=== PATIENT | male | born 1980 | race Two or more races ===

== ENCOUNTER 2016-11-04 18:14 | Emergency (ER) | payer MEDICAID ==
[~2016-11-04] VITALS: Ht 177.8 cm; Wt 103.0 kg
[~2016-11-04 18:14] MED LIST: BEN25 PO; CETI10CA PO; DIAZ-90 PO; ELIM TOP; HC30CR25 TOP; IBUP-1542 PO; PROM6.25 PO; SODI75SP NASAL
[2016-11-04 18:17] VITALS: Ht 177.8 cm; Wt 103.0 kg
[2016-11-04] MEDS ORDERED: IBUP-1542 PO (19:05)
[2016-11-04 19:20] VITALS: BP 131/79; PULSE 71; RESP 18; TEMP 98
--- NOTE | 2016-11-04 20:27 | ERA ---
ER Documentation Chief Complaint Date/Time DATE: 11/04/16 TIME: 20:21 Chief Complaint Complains of chest pain x 1 week HPI Patient is a 36-year-old male who presents with one-week left-sided chest pain radiating. Patient has not done anything at this time to relieve the pain. Patient is worried that it might be cardiac. Patient was at rest when it started. Patient denies fever, nausea, vomiting, diarrhea, diaphoresis, pain with exertion or radiation. Nothing improves the pain. Palpation makes the pain worse. ROS All systems reviewed and are negative except as per history of present illness. Medications Home Meds Active Scripts Ibuprofen* (Motrin*) 600 Mg Tab, 600 MG PO Q6H Y for PAIN AND OR ELEVATED TEMP, #30 TAB Prov:AISSATOU LOUIE PA-C 11/04/16 Diphenhydramine Hcl* (Benadryl*) 25 Mg Cap, 25 MG PO Q6, #15 CAP Prov:THIERRY SOLO MD 08/10/16 Hydrocortisone* Topical (Hydrocortisone* Topical) 2.5%-28.3 Gm Cream..g., 1 APPLIC TOP BID for 7 Days, #1 TUB Prov:THIERRY SOLO MD 08/10/16 Permethrin* (Elimite*) 5% Cr, 1 APPLIC TOP ONCE for 1 Day, TUB Prov:THIERRY SOLO MD 08/10/16 Diazepam* (Valium*) 5 Mg Tablet, 5 MG PO Q8 Y for MUSCLE SPASMS, #10 TAB Prov:MECHE GATICA PA-C 04/22/16 Ibuprofen* (Motrin*) 600 Mg Tab, 600 MG PO Q6H Y for PAIN AND OR ELEVATED TEMP, #30 TAB Prov:MECHE GATICA PA-C 04/22/16 Sodium Chloride/Sod Bicarb (Nasa Mist Saline [place]) 75 Ml [place], 2 SPRAYS NASAL BID, #1 BOTTLE Prov:ROSANNA RODRIGUEZ NP 10/15/15 Promethazine w/Codeine* (Phenergan w/Codeine* Syrup) 5 Ml Syrup, 5 ML PO Q4H Y for COUGH for 10 Days, ML Prov:ROSANNA RODRIGUEZ NP 10/15/15 Cetirizine Hcl* (Zyrtec*) 10 Mg Capsule, 10 MG PO DAILY, #10 TAB.CHEW Prov:ROSANNA RODRIGUEZ NP 10/15/15 Allergies Allergies: Coded Allergies: No Known Allergy (Unverified , 08/10/16) PMhx/Soc Medical and Surgical Hx: pt denies Medical Hx, pt denies Surgical Hx History of Surgery: No Anesthesia Reaction: No Hx Neurological Disorder: No Hx Respiratory Disorders: No Hx Cardiac Disorders: No Hx Psychiatric Problems: No Hx Miscellaneous Medical Probl: No Hx Alcohol Use: Yes (SOCIAL DRINKER "BEER SOMETIMES") Hx Substance Use: No Hx Tobacco Use: No Smoking Status: Never smoker Physical Exam Vitals Vital Signs Date Time Temp Pulse Resp B/P Pulse Ox O2 Delivery O2 Flow Rate FiO2 11/04/16 19:20 98.0 71 18 131/79 99 Room Air 11/04/16 18:17 98.2 63 20 139/76 99 Physical Exam Const: Well-appearing 36-year-old male Head: Atraumatic Eyes: Normal Conjunctiva ENT: Normal External Ears, Nose and Mouth. Neck: Full range of motion..~ No meningismus. Resp: Clear to auscultation bilaterally Cardio: Regular rate and rhythm, no murmurs Abd: Soft, non tender, non distended. Normal bowel sounds Skin: No petechiae or rashes Back: No midline or flank tenderness. Ext: No cyanosis, or edema Neur: Awake and alert Psych: Normal Mood and Affect Mild tenderness to palpation along left side of the chest to mid axillary line. Pain increases with deep breaths. Procedures/MDM Patient works as a manager paid. Has had atypical chest pain for the past 1 week. Pain is worse with palpation and is not exacerbated by exertion and started when he was at rest. EKG was negative. This time I do not believe the pain in the chest to be cardiac in nature. We will go ahead and prescribe the patient ibuprofen for musculoskeletal symptoms. Diagnosis at this time is most likely a type of costochondritis. I have advised the patient to follow-up with primary care provider in the next 1-3 days. Patient should return to the emergency room immediately if symptoms worsen or persist.. Departure Diagnosis: Primary Impression: Costochondritis Additional Impression: Costochondral chest pain Condition: Stable Patient Instructions: Costochondritis, Chest Wall Pain, Costochondritis Additional Instructions: Return to emergency department if symptoms worsen or persist Follow-up with primary care provider within the next 1-3 days. AISSATOU LOUIE PA-C Nov 04, 2016 20:27
== END 2016-11-04 19:20 | disposition home or self-care (01) ==
LOC: FTE 18:14
DX: M94.0 Chondrocostal junction syndrome [Tietze] (principal); R07.1 Chest pain on breathing
CPT/HCPCS: 93005; Z7502

== ENCOUNTER 2016-12-12 17:21 | Emergency (ER) | payer MEDICAID ==
[~2016-12-12] VITALS: Ht 177.8 cm; Wt 102.0 kg
[2016-12-12 17:29] VITALS: Ht 177.8 cm; Wt 102.0 kg
[2016-12-12] MEDS ORDERED: ELIM TOP (18:26)
--- NOTE | 2016-12-12 18:26 | ERD ---
ER Documentation Chief Complaint Date/Time DATE: 12/12/16 TIME: 18:23 Chief Complaint rash HPI This 36-year-old male patient presents to the emergency department reporting rash for 10 days not responding to treatment. Patient is here with his 2 daughters and all with similar symptoms. Rash developed after a friend stay the night at their house. ROS All systems reviewed and are negative except as per history of present illness. Medications Home Meds Active Scripts Hydrocortisone* Topical (Hydrocortisone* Topical) 2.5%-28.3 Gm Cream..g., 1 APPLIC TOP BID, #1 TUB Prov:MARIA GUADALUPE,MERCEDES 12/12/16 Permethrin* (Elimite*) 5% Cr, 1 APPLIC TOP ONCE for 1 Day, TUB 1 Refill Prov:MARIA GUADALUPE,MERCEDES 12/12/16 Ibuprofen* (Motrin*) 600 Mg Tab, 600 MG PO Q6H Y for PAIN AND OR ELEVATED TEMP, #30 TAB Prov:AISSATOU LOUIE PA-C 11/04/16 Diphenhydramine Hcl* (Benadryl*) 25 Mg Cap, 25 MG PO Q6, #15 CAP Prov:THIERRY SOLO MD 08/10/16 Hydrocortisone* Topical (Hydrocortisone* Topical) 2.5%-28.3 Gm Cream..g., 1 APPLIC TOP BID for 7 Days, #1 TUB Prov:THIERRY SOLO MD 08/10/16 Permethrin* (Elimite*) 5% Cr, 1 APPLIC TOP ONCE for 1 Day, TUB Prov:THIERRY SOLO MD 08/10/16 Diazepam* (Valium*) 5 Mg Tablet, 5 MG PO Q8 Y for MUSCLE SPASMS, #10 TAB Prov:MECHE GATICA PA-C 04/22/16 Ibuprofen* (Motrin*) 600 Mg Tab, 600 MG PO Q6H Y for PAIN AND OR ELEVATED TEMP, #30 TAB Prov:MECHE GATICA PA-C 04/22/16 Sodium Chloride/Sod Bicarb (Nasa Mist Saline [place]) 75 Ml [place], 2 SPRAYS NASAL BID, #1 BOTTLE Prov:ROSANNA RODRIGUEZ NP 10/15/15 Promethazine w/Codeine* (Phenergan w/Codeine* Syrup) 5 Ml Syrup, 5 ML PO Q4H Y for COUGH for 10 Days, ML Prov:RODRIGUEZROSANNA I. HAND [employer] CUTTER 10/15/15 Cetirizine Hcl* (Zyrtec*) 10 Mg Capsule, 10 MG PO DAILY, #10 TAB.CHEW Prov:ROSANNA RODRIGUEZ I. HAND [employer] CUTTER 10/15/15 Allergies Allergies: Coded Allergies: No Known Allergy (Unverified , 08/10/16) PMhx/Soc History of Surgery: No Anesthesia Reaction: No Hx Neurological Disorder: No Hx Respiratory Disorders: No Hx Cardiac Disorders: No Hx Psychiatric Problems: No Hx Miscellaneous Medical Probl: No Hx Alcohol Use: Yes (SOCIAL DRINKER "BEER SOMETIMES") Hx Substance Use: No Hx Tobacco Use: No Physical Exam Vitals Vitals stable, triage notes reviewed Physical Exam Const: No acute distress Head: Atraumatic Eyes: Normal Conjunctiva, PERRLA, EOMI ENT: Normal External Ears, Nose and Mouth. Neck: Full range of motion.. Resp: Chest rise and fall symmetrically, clear to auscultation bilaterally, no respiratory distress Cardio: Abd: Skin: Erythematous papules along waistband, scratch garcia noted. Back: Ext: No cyanosis, or edema Neur: Awake and alert Psych: Normal Mood and Affect Procedures/MDM This 36-year-old male patient presents the emergency department today with his entire family complaint of a pruritic rash that started after a friend stayed the night at the house. Atopic dermatitis, fungal infection not suspected, likely infestation, physical exam findings consistent with scabies, patient will be treated with Elimite apply from neck down to the toes let stand for 10 hours prior to rinsing, patient given Benadryl and hydrocortisone cream for itching. One refill of the Elimite to be used if symptoms present after 7 days. I feel the patient is stable for discharge and outpatient management by primary care physician I have discussed results, examination findings, the treatment plan with the patient and family present prior to discharge. Indications for emergent reevaluation, side effects of medication were also discussed. All questions were answered. Patient verbalizes understanding and agrees with plan of care. Departure Diagnosis: Primary Impression: Rash and other nonspecific skin eruption Additional Impression: Scabies Condition: Good Patient Instructions: Scabies, Self-Care for Skin Rashes [facility] Additional Instructions: Thank you for for coming to [facility] for your care today. Please ask your nurse or provider if you have questions about your care today and do not leave until all your questions have been answered. Please use any medications given as directed and follow-up with your doctor (or the doctor you were referred to) in the next 2-3 days. If you do not have a primary care doctor you may follow up at the [facility] (listed below). You may also use motrin and tylenol as needed for fever and/or pain unless instructed otherwise by your provider or nurse. Indications for more urgent follow-up have been discussed, but you may return to the Emergency Department at ANY time for any worrisome or worsening symptoms. If you have abdominal pain, please know that no test or exam you received is perfect and you should follow up within 8 hours for continued pain. If you had any imaging studies today, such as an X-Ray or CT Scan, these studies will be reviewed later by a radiologist. You will be called if there are important findings that were not identified today, so make sure the contact information you provided at registration is correct. If you received any narcotic pain control medicine today, such as Vicodin, Morphine or Dilaudid, your coordination and judgment may be affected for a number of hours. Please do not drive or operate heavy machinery, and you may want someone to assist you at home. If you were given a prescription for narcotic medication, be aware that it is very addictive- use sparingly and only if necessary. MERCEDES LERMA December 12, 2016 18:25
[2016-12-12] MEDS ORDERED: HC30CR25 TOP (18:27)
== END 2016-12-12 18:30 | disposition home or self-care (01) ==
LOC: FTE 17:21 → E/R 18:30
DX: R21 Rash and other nonspecific skin eruption (principal); B86 Scabies
CPT/HCPCS: 99283

== ENCOUNTER 2017-03-28 16:36 | Emergency (ER) | END 2017-03-28 17:26 | disposition home or self-care (01) | DX: J02.9 Acute pharyngitis, unspecified (principal) ==

== ENCOUNTER 2017-07-14 22:13 | Emergency (ER) | payer MEDICAID ==
[~2017-07-14] VITALS: Ht 180.3 cm; Wt 105.0 kg
[~2017-07-14 22:13] MED LIST changes: +AZIT250T94 PO
[2017-07-14 22:15] VITALS: Ht 180.3 cm; Wt 105.0 kg
[2017-07-14] MEDS ORDERED: BELLADONNA/PHENOBARBITAL TAB PO STA (22:47)
[2017-07-14] MEDS ORDERED: LIDOCAINE/MYLANTA 40 ML BTL PO STA (22:47)
[2017-07-14 23:18] LABS: BASOPHIL # 0.1 10^3/ul (0.0-0.1); BASOPHILS % 0.6 % (0.0-2.0); EOSINOPHILS # 0.2 10^3/ul (0.0-0.5); EOSINOPHILS % 2.5 % (0.0-7.0); HEMATOCRIT 43.5 % (42.0-52.0); HEMOGLOBIN 15.3 g/dl (14.0-18.0); LYMPHOCYTES # 2.7 10^3/ul (0.8-2.9); LYMPHOCYTES % 31.6 % (15.0-51.0); MEAN CORPUSCULAR HEMOGLOBIN 30.2 pg (29.0-33.0); MEAN CORPUSCULAR HGB CONC 35.2 g/dl (32.0-37.0); MEAN CORPUSCULAR VOLUME 85.8 fl (82.0-101.0); MEAN PLATELET VOLUME 9.9 fl (7.4-10.4); MONOCYTE # 0.7 10^3/ul (0.3-0.9); MONOCYTES % 8.3 % (0.0-11.0); NEUTROPHIL # 4.8 10^3/ul (1.6-7.5); NEUTROPHILS % 56.8 % (39.0-77.0); PLATELET COUNT 265 10^3/UL (140-415); RED BLOOD COUNT 5.07 10^6/ul (4.70-6.10); RED CELL DISTRIBUTION WIDTH 12.9 % (11.5-14.5); WHITE BLOOD COUNT 8.4 10^3/ul (4.8-10.8)
[2017-07-14 23:20] LABS: ADD UMIC NO; UR ASCORBIC ACID 20 mg/dL (NEGATIVE); UR BILIRUBIN (Dip) NEGATIVE (NEGATIVE); UR BLOOD (Dip) NEGATIVE (NEGATIVE); UR CLARITY CLEAR (CLEAR); UR COLOR YELLOW (YELLOW); UR GLUCOSE (Dip) NEGATIVE (NEGATIVE); UR KETONES (Dip) NEGATIVE (NEGATIVE); UR LEUKOCYTE ESTERASE (Dip) NEGATIVE Leu/ul (NEGATIVE); UR NITRITE (Dip) NEGATIVE (NEGATIVE); UR SPECIFIC GRAVITY (Dip) 1.017 (1.003-1.030); UR TOTAL PROTEIN (Dip) NEGATIVE (NEGATIVE); UR UROBILINOGEN (Dip) NEGATIVE (NEGATIVE)
--- NOTE | 2017-07-14 23:31 | RADRPT ---
PROCEDURE: US abdomen right upper quadrant CLINICAL INDICATION: Abdominal pain. TECHNIQUE: Mcmahan scale and color Doppler ultrasound of the right upper quadrant of the abdomen was p erformed. COMPARISON: None available. FINDINGS: Pancreas: Not visualized due to overlying bowel gas. Liver: Mildly enlarged measuring 18.8 cm. Diffuse increased echogenicity, consistent with fatty infi ltration. No focal hepatic lesion. Hepatopedal flow in the main portal vein. Gallbladder: Contracted without stones or pericholecystic fluid. Negative sonographic Arguello's sign. Common bile duct: 4.5 mm in diameter. Right Kidney: 12.1 cm in length. No nephrolithiasis, hydronephrosis, or mass. Ascites: None. IMPRESSION: 1. Hepatic steatosis and mild hepatomegaly. 2. Otherwise, unremarkable examination. RPTAT: HLBP .Roni Diaz MD, Date Time Electronically viewed and signed by .Roni Diaz MD, MD on 07/14/2017 23:31 .P/
[2017-07-14 23:35] LABS: ALBUMIN 4.3 g/dl (3.3-4.9); ALBUMIN/GLOBULIN RATIO 1.38; BILIRUBIN,INDIRECT 0.3 mg/dl (0-1.1); BILIRUBIN,TOTAL 0.3 mg/dl (0.2-1.3); CALCIUM 9.7 mg/dl (8.4-10.2); CREATININE 1.13 mg/dl (0.61-1.24); POTASSIUM 3.5 mmol/L (3.5-5.1); TOTAL PROTEIN 7.4 g/dl (6.1-8.1)
--- NOTE | 2017-07-14 23:44 | ERD ---
ER Documentation Chief Complaint Chief Complaint c/o abd pain x 3 wks. (+) diarrhea. HPI 37-year-old male presents with epigastric pain that has been intermittent for the past 3 weeks. He denies vomiting but does have nausea. No fever. Symptoms are worse after eating. No diarrhea. No dysuria hematuria frequency. ROS All systems reviewed and are negative except as per history of present illness. Medications Home Meds Active Scripts Ibuprofen* (Motrin*) 600 Mg Tab, 600 MG PO Q6, #15 TAB Prov:THIERRY SOLO MD 03/28/17 Azithromycin* (Zithromax*) 250 Mg Tablet, 250 MG PO .ZPACK DIRECTED, #6 TAB TAKE 500 MG (2 TABS) THE FIRST DAY THEN 250 MG (1 TAB) DAYS 2-5 Prov:THIERRY SOLO MD 03/28/17 Hydrocortisone* Topical (Hydrocortisone* Topical) 2.5%-28.3 Gm Cream..g., 1 APPLIC TOP BID, #1 TUB Prov:MARIA GUADALUPE,MERCEDES 12/12/16 Permethrin* (Elimite*) 5% Cr, 1 APPLIC TOP ONCE for 1 Day, TUB 1 Refill Prov:MARIA GUADALUPE,MERCEDES 12/12/16 Ibuprofen* (Motrin*) 600 Mg Tab, 600 MG PO Q6H Y for PAIN AND OR ELEVATED TEMP, #30 TAB Prov:AISSATOU LOUIE PA-C 11/04/16 Diphenhydramine Hcl* (Benadryl*) 25 Mg Cap, 25 MG PO Q6, #15 CAP Prov:THIERRY SOLO MD 08/10/16 Hydrocortisone* Topical (Hydrocortisone* Topical) 2.5%-28.3 Gm Cream..g., 1 APPLIC TOP BID for 7 Days, #1 TUB Prov:THIERRY SOLO MD 08/10/16 Permethrin* (Elimite*) 5% Cr, 1 APPLIC TOP ONCE for 1 Day, TUB Prov:THIERRY SOLO MD 08/10/16 Diazepam* (Valium*) 5 Mg Tablet, 5 MG PO Q8 Y for MUSCLE SPASMS, #10 TAB Prov:MECHE GATICA PA-C 04/22/16 Ibuprofen* (Motrin*) 600 Mg Tab, 600 MG PO Q6H Y for PAIN AND OR ELEVATED TEMP, #30 TAB Prov:MECHE GATICA PA-C 04/22/16 Sodium Chloride/Sod Bicarb (Nasa Mist Saline [place]) 75 Ml [place], 2 SPRAYS NASAL BID, #1 BOTTLE Prov:RODRIGUEZROSANNA I. ASSOCIATE PROFESSOR OF ANTHROPOLOGY 10/15/15 Promethazine w/Codeine* (Phenergan w/Codeine* Syrup) 5 Ml Syrup, 5 ML PO Q4H Y for COUGH for 10 Days, ML Prov:RODRIGUEZROSANNA I. ASSOCIATE PROFESSOR OF ANTHROPOLOGY 10/15/15 Cetirizine Hcl* (Zyrtec*) 10 Mg Capsule, 10 MG PO DAILY, #10 TAB.CHEW Prov:RODRIGUEZROSANNA I. ASSOCIATE PROFESSOR OF ANTHROPOLOGY 10/15/15 Allergies Allergies: Coded Allergies: No Known Allergy (Unverified , 08/10/16) PMhx/Soc Medical and Surgical Hx: pt denies Medical Hx, pt denies Surgical Hx History of Surgery: No Anesthesia Reaction: No Hx Neurological Disorder: No Hx Respiratory Disorders: No Hx Cardiac Disorders: No Hx Psychiatric Problems: No Hx Miscellaneous Medical Probl: No Hx Alcohol Use: No Hx Substance Use: No Hx Tobacco Use: No Smoking Status: Never smoker FmHx Family History: No diabetes Physical Exam Vitals Vital Signs Date Time Temp Pulse Resp B/P Pulse Ox O2 Delivery O2 Flow Rate FiO2 07/14/17 22:15 98.1 71 18 133/73 98 Physical Exam INITIAL VITAL SIGNS: Reviewed by me GENERAL: Awake, alert and oriented x 4, well appearing, nontoxic, speaking in full sentences. No acute distress HEAD: Atraumatic RESPIRATORY: Clear to auscultation bilaterally. Symmetric chest wall rise. No wheezing or rales. No accessory muscle use. CV: Regular rate and rhythm. No murmurs, rubs, or gallops. ABDOMEN: Soft, non-distended. Nontender. Negative [place]. Negative McBurneys point tenderness. No CVA tenderness bilaterally. No guarding. No rebound. Result Diagram: 07/14/17225007/14/172250 Results 24 hrs Laboratory Tests Test 07/14/17 22:51 White Blood Count 8.410^3/ul Red Blood Count 5.0710^6/ul Hemoglobin 15.3g/dl Hematocrit 43.5% Mean Corpuscular Volume 85.8fl Mean Corpuscular Hemoglobin 30.2pg Mean Corpuscular Hemoglobin Concent 35.2g/dl Red Cell Distribution Width 12.9% Platelet Count 18653^3/UL Mean Platelet Volume 9.9fl Neutrophils % 56.8% Lymphocytes % 31.6% Monocytes % 8.3% Eosinophils % 2.5% Basophils % 0.6% Nucleated Red Blood Cells % 0.0/100WBC Neutrophils # 4.810^3/ul Lymphocytes # 2.710^3/ul Monocytes # 0.710^3/ul Eosinophils # 0.210^3/ul Basophils # 0.110^3/ul Nucleated Red Blood Cells # 0.010^3/ul Urine Color YELLOW Urine Clarity CLEAR Urine pH 5.0 Urine Specific [place] 1.017 Urine Ketones NEGATIVEmg/dL Urine Nitrite NEGATIVEmg/dL Urine Bilirubin NEGATIVEmg/dL Urine Urobilinogen NEGATIVEmg/dL Urine Leukocyte Esterase NEGATIVELeu/ul Urine Hemoglobin NEGATIVEmg/dL Urine Glucose NEGATIVEmg/dL Urine Total Protein NEGATIVEmg/dl Sodium Level 144mmol/L Potassium Level 3.5mmol/L Chloride Level 105mmol/L Carbon Dioxide Level 29mmol/L Anion Gap 14 Blood Urea Nitrogen 14mg/dl Creatinine 1.13mg/dl Glucose Level 83mg/dl Calcium Level 9.7mg/dl Total Bilirubin 0.3mg/dl Direct Bilirubin 0.00mg/dl Indirect Bilirubin 0.3mg/dl Aspartate Amino Transf (AST/SGOT) 49IU/L Alanine Aminotransferase (ALT/SGPT) 64IU/L Alkaline Phosphatase 64IU/L Total Protein 7.4g/dl Albumin 4.3g/dl Globulin 3.10g/dl Albumin/Globulin Ratio 1.38 Lipase 140U/L Current Medications Medications (Trade) Dose Ordered Sig/Sam Route PRN Reason Start Time Stop Time Status Last Admin Dose Admin Miscellaneous Medication (Gi Cocktail (2)) 40 ml ONCE STAT PO 07/14/17 22:47 07/14/17 22:49 DC 07/14/17 22:53 [place]/ Phenobarbital () 2 tab ONCE STAT PO 07/14/17 22:47 07/14/17 22:49 DC 07/14/17 22:53 Procedures/MDM 37-year-old male presents with abdominal pain. Patients is alert, oriented, well appearing, and in no distress with normal vital signs. There is no fever, tachycardia, or tachypnea. The differential diagnosis includes but is not limited to appendicitis, cholelithiasis, cholecystitis, pancreatitis, hepatitis , gastritis, peptic ulcer disease, bowel obstruction, diverticulitis, renal disease including stones, torsion, AAA, pyelonephritis, and others. Laboratory analysis shows no evidence of acute emergent abnormality. No evidence of significant leukocytosis suggesting systemic infection or severe anemia. No evidence of acute renal or liver failure, no evidence of severe alkalosis or acidosis. Patient was given a GI cocktail with improvement of his symptoms. Patient given a copy of all labs and ultrasound reports we can follow with primary care. Patient counseled regarding my diagnostic impression and care plan. Prior to discharge all questions answered. Pt agrees with treatment plan and understands strict return precautions. Pt is instructed to follow up with primary care provider within 24-48 hours. Precautionary instructions provided including instructions to return to the ER if not improving or for any worsening or changing symptoms or concerns. Departure Diagnosis: Primary Impression: Abdominal pain Condition: Stable VAN CALABRESE PA-C Jul 14, 2017 23:44
[2017-07-14] MEDS ORDERED: ONDA4TAB14 PO (23:46)
[2017-07-14] MEDS ORDERED: FAMO40TA38 PO (23:46)
== END 2017-07-14 23:59 | disposition home or self-care (01) ==
LOC: FTE 22:13
DX: R10.13 Epigastric pain (principal)
CPT/HCPCS: 76705; 80053; 81003; 83690; 85025; Z7610; 36415

== ENCOUNTER 2018-08-18 09:17 | Emergency (ER) | payer MEDICAID ==
[~2018-08-18] VITALS: Ht 167.6 cm; Wt 96.1 kg
[~2018-08-18 09:17] MED LIST changes: +AZIT250T PO; -AZIT250T94 PO; -DIAZ-90 PO; +DIAZ5TAB PO; +FAMO40TA66 PO; +ONDA4TAB14 PO
[2018-08-18 09:22] VITALS: BP 137/66; PULSE 81; RESP 20; Ht 167.6 cm; Wt 96.1 kg
[2018-08-18] MEDS ORDERED: IBUPROFEN 600 MG TAB PO ONE (10:00)
[2018-08-18] MEDS ORDERED: IBUP-1542 PO (10:08)
[2018-08-18] MEDS ORDERED: BENZ-6 PO (10:08)
[2018-08-18] MEDS ORDERED: GUAI5SYR2 PO (10:09)
[2018-08-18] MEDS ORDERED: AMOX500C2 PO (10:09)
--- NOTE | 2018-08-18 10:14 | ERD ---
ER Documentation Chief Complaint Chief Complaint Complains of flu-like symptoms HPI Patient is a 38-year-old male presents to the ER for concerns of fever, cough, sore throat times 2 days. Patient denies any medications for symptoms. Patient reports tactile fevers. Patient states cough is dry. Patient states his pain with swallowing. Patient denies any drooling, trismus or hyperextension of his neck. Patient denies any chest pain, shortness breath, nausea, vomiting abdominal pain or diarrhea. Patient denies any neck pain or neck stiffness. Patient denies any recent travel. No sick contacts. ROS All systems reviewed and are negative except as per history of present illness. Medications Home Meds Active Scripts Amoxicillin* (Amoxicillin*) 500 Mg Cap, 500 MG PO BID for 7 Days, CAP Prov:DAYANA DAVILA PA-C 08/18/18 Guaifenesin-Dextromethorphan* (Robitussin* DM) 100MG/10MG/5ML Syrup, 5 ML PO Q4H PRN for COUGH, #4 OZ Prov:DAYANA DAVILA PA-C 08/18/18 Benzonatate* (Tessalon Perle*) 100 Mg Capsule, 100 MG PO Q8H PRN for COUGH, #20 CAP Prov:DAYANA DAVILA PA-C 08/18/18 Ibuprofen* (Motrin*) 600 Mg Tab, 600 MG PO Q6, #30 TAB Prov:DAYANA DAVILA PA-C 08/18/18 Ondansetron (Ondansetron Odt) 4 Mg Tab.rapdis, 4 MG PO Q6H PRN for NAUSEA AND/OR VOMITING, #20 TAB Prov:VAN CALABRESE PA-C 07/14/17 Famotidine* (Pepcid*) 40 Mg Tablet, 40 MG PO BID, #60 TAB Prov:VAN CALABRESE PA-C 07/14/17 Ibuprofen* (Motrin*) 600 Mg Tab, 600 MG PO Q6, #15 TAB Prov:THIERRY SOLO MD 03/28/17 Azithromycin* (Zithromax*) 250 Mg Tablet, 250 MG PO .JeniPACK DIRECTED, #6 TAB TAKE 500 MG (2 TABS) THE FIRST DAY THEN 250 MG (1 TAB) DAYS 2-5 Prov:THIERRY SOLO MD 03/28/17 Hydrocortisone* Topical (Hydrocortisone* Topical) 2.5%-28.3 Gm Cream..g., 1 APPLIC TOP BID, #1 TUB Prov:MARIA GUADALUPE,MERCEDES 12/12/16 Permethrin* (Elimite*) 5% Cr, 1 APPLIC TOP ONCE for 1 Day, TUB 1 Refill Prov:MARIA GUADALUPE,MERCEDES 12/12/16 Ibuprofen* (Motrin*) 600 Mg Tab, 600 MG PO Q6H PRN for PAIN AND OR ELEVATED TEMP, #30 TAB Prov:AISSATOU LOUIE PA-C 11/04/16 Diphenhydramine Hcl* (Benadryl*) 25 Mg Cap, 25 MG PO Q6, #15 CAP Prov:THIERRY SOOL MD 08/10/16 Hydrocortisone* Topical (Hydrocortisone* Topical) 2.5%-28.3 Gm Cream..g., 1 APPLIC TOP BID for 7 Days, #1 TUB Prov:THIERRY SOLO MD 08/10/16 Permethrin* (Elimite*) 5% Cr, 1 APPLIC TOP ONCE for 1 Day, TUB Prov:THIERRY SOLO MD 08/10/16 Diazepam* (Valium*) 5 Mg Tablet, 5 MG PO Q8 PRN for MUSCLE SPASMS, #10 TAB Prov:MECHE GATICA PA-C 04/22/16 Ibuprofen* (Motrin*) 600 Mg Tab, 600 MG PO Q6H PRN for PAIN AND OR ELEVATED TEMP, #30 TAB Prov:MECHE GATICA PA-C 04/22/16 Sodium Chloride/Sod Bicarb (Nasa Mist Saline [place]) 75 Ml [place], 2 SPRAYS NASAL BID, #1 BOTTLE Prov:ROSANNA RODRIGUEZ I. SOLDERING MACHINE TENDER 10/15/15 Promethazine w/Codeine* (Phenergan w/Codeine* Syrup) 5 Ml Syrup, 5 ML PO Q4H PRN for COUGH for 10 Days, ML Prov:ROSANNA RODRIGUEZ I. SOLDERING MACHINE TENDER 10/15/15 Cetirizine Hcl* (Zyrtec*) 10 Mg Capsule, 10 MG PO DAILY, #10 TAB.CHEW Prov:ROSANNA RODRIGUEZ I. SOLDERING MACHINE TENDER 10/15/15 Allergies Allergies: Coded Allergies: No Known Allergy (Unverified , 08/10/16) PMhx/Soc History of Surgery: No Anesthesia Reaction: No Hx Neurological Disorder: No Hx Respiratory Disorders: No Hx Cardiac Disorders: No Hx Psychiatric Problems: No Hx Miscellaneous Medical Probl: No Hx Alcohol Use: No Hx Substance Use: No Hx Tobacco Use: No FmHx Family History: No diabetes Physical Exam Vitals Vital Signs Date Temp Pulse Resp B/P (MAP) Pulse Ox O2 O2 Flow FiO2 Time Delivery Rate 08/18/18 99.5 81 20 137/66 98 09:22 (89) Physical Exam GENERAL: Well-developed, well-nourished male. Appears in no acute distress. HEAD: Normocephalic, atraumatic. No deformities or ecchymosis. EYE: Pupils equal, round, and reactive to light. EOMs intact. No conjunctival erythema. No eye discharge. ENT: External ear without any masses or tenderness. Auditory canals clear bilaterally. TM visualized bilaterally, non-erythematous, non-bulging. Nasal mucosa pink with no discharge. Oropharynx is erythematous with 1+ tonsillar enlargement noted bilaterally. Exudates noted on the left tonsil.. No uvula deviation. No kissing tonsils. NECK: Supple. No meningismus. Normal ROM of the neck. LUNG: Clear to auscultation bilaterally. No rhonchi, wheezing, rales or coarse breath sounds. HEART: Regular rate and rhythm. No murmurs, rubs or gallops. EXTREMITES: Equal pulses bilaterally. No peripheral clubbing, cyanosis or edema. No unilateral leg swelling. NEUROLOGIC: Alert and oriented to person, place and time. Moving all four extremities. 5/5 strength in all extremities. Normal speech. Steady gait SKIN: Normal color. Warm and dry. No rashes or lesions. Results 24 hrs Current Medications Medications Dose Sig/Sam Start Time Status Last (Trade) Ordered Route PRN Stop Time Admin Dose Reason Admin Ibuprofen 600 mg ONCE ONCE 08/18/18 DC 08/18/18 (Motrin) PO 10:00 08/18/18 10:03 10:02 Procedures/MDM MEDICAL DECISION MAKING: This this is a 38-year-old male presents the ER for concerns of fever, cough and sore throat times 2 days. Vital signs were reviewed. Patient was afebrile. Patient was not hypoxic. Physical exam findings are concerning for strep pharyngitis. I will empirically treat patient with course of antibiotics at this time. Low suspicion for pneumonia, meningitis, sinusitis, otitis externa, acute otitis media, mononucleosis, epiglottitis or peritonsillar abscess. Patient was nontoxic, non-opening prior to discharge. PRESCRIPTIONS: Ibuprofen, Robitussin-DM, Tessalon Perles, amoxicillin. DISCHARGE: At this time, patient is stable for discharge and outpatient management. Supportive therapies such as OTC throat lozenges, salt water gurgles, popsicles and jello discussed. I have instructed the patient to follow-up with his/her primary care physician in 1-2 days. I have instructed the patient to promptly return to the ER for any new or worsening symptoms including increased pain, swelling, fever, nausea, vomiting, weakness or difficulty breathing. The patient and/or family expressed understanding of and agreement with this plan. All questions were answered. Home care instructions were provided. Disclaimer: Inadvertent spelling and grammatical errors are likely due to EHR/dictation software use and do not reflect on the overall quality of patient care. Also, please note that the electronic time recorded on this note does not necessarily reflect the actual time of the patient encounter. Departure Diagnosis: Primary Impression: Acute bacterial tonsillitis Condition: Fair Patient Instructions: Pharyngitis, Strep (Presumed), Uri, Viral, No Abx (Adult) Referrals: [facility] YOU HAVE RECEIVED A MEDICAL SCREENING EXAM AND THE RESULTS INDICATE THAT YOU DO NOT HAVE A CONDITION THAT REQUIRES URGENT TREATMENT IN THE EMERGENCY DEPARTMENT. FURTHER EVALUATION AND TREATMENT OF YOUR CONDITION CAN WAIT UNTIL YOU ARE SEEN IN YOUR DOCTORS OFFICE WITHIN THE NEXT 1-2 DAYS. IT IS YOUR RESPONSIBILITY TO MAKE AN APPOINTMENT FOR FOLOW-UP CARE. IF YOU HAVE A PRIMARY DOCTOR --you should call your primary doctor and schedule an appointment IF YOU DO NOT HAVE A PRIMARY DOCTOR YOU CAN CALL OUR PHYSICIAN REFERRAL HOTLINE AT IF YOU CAN NOT AFFORD TO SEE A PHYSICIAN YOU CAN CHOSE FROM THE FOLLOWING [facility] [address] [facility]. [facility] [address] [facility]. [email or web address] [address] [facility]. [facility] [address] [facility]. [facility] [address] [facility]. [facility]. [address] [facility]. [facility] YOU HAVE RECEIVED A MEDICAL SCREENING EXAM AND THE RESULTS INDICATE THAT YOU DO NOT HAVE A CONDITION THAT REQUIRES URGENT TREATMENT IN THE EMERGENCY DEPARTMENT. FURTHER EVALUATION AND TREATMENT OF YOUR CONDITION CAN WAIT UNTIL YOU ARE SEEN IN YOUR DOCTORS OFFICE WITHIN THE NEXT 1-2 DAYS. IT IS YOUR RESPONSIBILITY TO MAKE AN APPOINTMENT FOR FOLOW-UP CARE. IF YOU HAVE A PRIMARY DOCTOR --you should call your primary doctor and schedule and appointment IF YOU DO NOT HAVE A PRIMARY DOCTOR YOU CAN CALL OUR PHYSICIAN REFERRAL HOTLINE AT . IF YOU CAN NOT AFFORD TO SEE A PHYSICIAN YOU CAN CHOSE FROM THE FOLLOWING [facility] INSTITUTIONS: [facility] [address] [place], [place] [id number] [place] [address] [address] [place] [address] [facility] [address] [place] [address] Additional Instructions: Llame al doctor MAANA y rigoberto sahil LEANDRA PARA DENTRO DE 1-2 DONIS.Dgale a la secretaria que nosotros le instruimos hacer esta leandra.Avise o llame si carmichael condicin se empeora antes de la leandra. Regresa aqui si peor o no mejor. DAYANA DAVILA PA-C Aug 18, 2018 10:14
== END 2018-08-18 10:19 | disposition home or self-care (01) ==
LOC: FTE 09:17
DX: J03.80 Acute tonsillitis due to other specified organisms (principal); B96.89 Other specified bacterial agents as the cause of diseases classified elsewhere
CPT/HCPCS: Z7502; Z7610; 99283

== ENCOUNTER 2018-10-11 06:01 | Emergency (ER) | payer MEDICAID ==
[~2018-10-11] VITALS: Ht 179.1 cm; Wt 95.0 kg
[~2018-10-11 06:01] MED LIST changes: +AMOX500C2 PO; +BENZ-6 PO; +GUAI5SYR2 PO
[2018-10-11 06:12] VITALS: Ht 179.1 cm; Wt 95.0 kg
[2018-10-11] MEDS ORDERED: KETOROLAC 15 MG INJ IV STA (09:14)
[2018-10-11] MEDS ORDERED: SOD CHLORIDE 0.9% 1,000 ML IV STA (09:14)
[2018-10-11] MEDS ORDERED: ONDANSETRON 4 MG INJ IV STA (09:14)
[2018-10-11] MEDS ORDERED: CEPHALEXIN 500 MG CAP PO ONE (10:00)
[2018-10-11] MEDS ORDERED: IBUP-1542 PO (10:02)
[2018-10-11] MEDS ORDERED: CEPH-443 PO (10:02)
[2018-10-11 10:50] VITALS: BP 127/75; PULSE 72; RESP 18
--- NOTE | 2018-10-12 11:56 | ERD ---
ER Documentation Chief Complaint Chief Complaint deja flank pains x 1week w/dysuria&suprapubic pressure HPI 38-year-old man complaining of left flank pain radiating to the left groin intermittently times 1 week. Patient also complains of dysuria and some suprapubic discomfort. He denies fevers or chills, no chest pain or shortness of breath, no penile discharge, no vomiting or diarrhea. ROS All systems reviewed and are negative except as per history of present illness. Medications Home Meds Active Scripts Ibuprofen* (Motrin*) 600 Mg Tab, 600 MG PO Q8 PRN for PAIN AND/OR INFLAMMATION, #30 TAB Prov:TEMITOPE BERGER MD 10/11/18 Cephalexin* (Keflex*) 500 Mg Capsule, 500 MG PO TID for 5 Days, CAP Prov:TEMITOPE BERGER MD 10/11/18 Amoxicillin* (Amoxicillin*) 500 Mg Cap, 500 MG PO BID for 7 Days, CAP Prov:DAYANA DAVILA PA-C 08/18/18 Guaifenesin-Dextromethorphan* (Robitussin* DM) 100MG/10MG/5ML Syrup, 5 ML PO Q4H PRN for COUGH, #4 OZ Prov:DAYANA DAVILA PA-C 08/18/18 Benzonatate* (Tessalon Perle*) 100 Mg Capsule, 100 MG PO Q8H PRN for COUGH, #20 CAP Prov:DAYANA DAVILAC 08/18/18 Ibuprofen* (Motrin*) 600 Mg Tab, 600 MG PO Q6, #30 TAB Prov:DAYANA DAVILA PA-C 08/18/18 Ondansetron (Ondansetron Odt) 4 Mg Tab.rapdis, 4 MG PO Q6H PRN for NAUSEA AND/OR VOMITING, #20 TAB Prov:VAN CALABRESE PA-C 07/14/17 Famotidine* (Pepcid*) 40 Mg Tablet, 40 MG PO BID, #60 TAB Prov:VAN CALABRESE PA-C 07/14/17 Ibuprofen* (Motrin*) 600 Mg Tab, 600 MG PO Q6, #15 TAB Prov:THIERRY SOLO MD 03/28/17 Azithromycin* (Zithromax*) 250 Mg Tablet, 250 MG PO .ZPACK DIRECTED, #6 TAB TAKE 500 MG (2 TABS) THE FIRST DAY THEN 250 MG (1 TAB) DAYS 2-5 Prov:THIERRY SOLO MD 03/28/17 Hydrocortisone* Topical (Hydrocortisone* Topical) 2.5%-28.3 Gm Cream..g., 1 APPLIC TOP BID, #1 TUB Prov:MARIA GUADALUPE,MERCEDES 12/12/16 Permethrin* (Elimite*) 5% Cr, 1 APPLIC TOP ONCE for 1 Day, TUB 1 Refill Prov:MARIA GUADALUPE,MERCEDES 12/12/16 Ibuprofen* (Motrin*) 600 Mg Tab, 600 MG PO Q6H PRN for PAIN AND OR ELEVATED TEMP, #30 TAB Prov:AISSATOU LOUIE PA-C 11/04/16 Diphenhydramine Hcl* (Benadryl*) 25 Mg Cap, 25 MG PO Q6, #15 CAP Prov:THIERRY SOLO MD 08/10/16 Hydrocortisone* Topical (Hydrocortisone* Topical) 2.5%-28.3 Gm Cream..g., 1 APPLIC TOP BID for 7 Days, #1 TUB Prov:THIERRY SOLO MD 08/10/16 Permethrin* (Elimite*) 5% Cr, 1 APPLIC TOP ONCE for 1 Day, TUB Prov:THIERRY SOLO MD 08/10/16 Diazepam* (Valium*) 5 Mg Tablet, 5 MG PO Q8 PRN for MUSCLE SPASMS, #10 TAB Prov:MECHE GATICA PA-C 04/22/16 Ibuprofen* (Motrin*) 600 Mg Tab, 600 MG PO Q6H PRN for PAIN AND OR ELEVATED TEMP, #30 TAB Prov:MECHE GATICA PA-C 04/22/16 Sodium Chloride/Sod Bicarb (Nasa Mist Saline [place]) 75 Ml [place], 2 SPRAYS NASAL BID, #1 BOTTLE Prov:ROSANNA RODRIGUEZ NP 10/15/15 Promethazine w/Codeine* (Phenergan w/Codeine* Syrup) 5 Ml Syrup, 5 ML PO Q4H PRN for COUGH for 10 Days, ML Prov:ROSANNA RODRIGUEZ NP 10/15/15 Cetirizine Hcl* (Zyrtec*) 10 Mg Capsule, 10 MG PO DAILY, #10 TAB.CHEW Prov:ROSANNA RODRIGUEZ I. SAMUEL 10/15/15 Allergies Allergies: Coded Allergies: No Known Allergy (Unverified , 10/11/18) PMhx/Soc None History of Surgery: No Anesthesia Reaction: No Hx Neurological Disorder: No Hx Respiratory Disorders: No Hx Cardiac Disorders: No Hx Psychiatric Problems: No Hx Miscellaneous Medical Probl: No Hx Alcohol Use: No Hx Substance Use: No Hx Tobacco Use: No Smoking Status: Never smoker FmHx Family History: No diabetes Physical Exam Vitals Vital Signs Date Temp Pulse Resp B/P (MAP) Pulse Ox O2 O2 Flow FiO2 Time Delivery Rate 10/11/18 98.2 72 18 127/75 99 Room Air 10:50 (92) 10/11/18 98.3 68 18 112/67 99 Room Air 09:30 (82) 10/11/18 97.4 71 18 127/75 100 06:12 (92) Physical Exam GENERAL: Well-developed, well-nourished, moderate discomfort, afebrile HEENT: Moist mucous membranes, pink conjunctiva, no cervical spine tenderness or step-off deformities, no goiter, no jaundice or icterus, extraocular movements intact without pain. No submandibular induration, and no pharyngeal erythema NEURO: Alert and oriented 3, cranial nerves II through XII intact bilaterally, pupils equal round reactive to light, no focal deficits or facial asymmetry, sensation intact distally Strength 5/5 in upper and lower extremities bilaterally CARDIAC: Regular rate and rhythm, no murmurs rubs or gallops LUNGS: Clear bilaterally no wheezing crackles or stridor ABDOMEN: Soft nontender, no guarding, no rigidity, no rebound, no psoas sign no obturator sign. No CVA tenderness to touch SKIN: Warm and dry to touch, no abrasions, contusions, or hematomas, no lace rations, no ecchymosis, no target lesions, and without ulcers EXTREMITIES: No clubbing cyanosis or edema, calves are bilaterally symmetrical, no Homans sign, no popliteal cord sign. Distal pulses equal and bilateral PSYCH: Normal affect without agitation or irritability Result Diagram: 10/11/1892910/11/18929 Results 24 hrs Laboratory Tests Test 10/11/18 09:30 White Blood Count 5.2 10^3/ul Red Blood Count 5.50 10^6/ul Hemoglobin 16.6 g/dl Hematocrit 47.5 % Mean Corpuscular Volume 86.4 fl Mean Corpuscular Hemoglobin 30.2 pg Mean Corpuscular Hemoglobin Concent 34.9 g/dl Red Cell Distribution Width 12.5 % Platelet Count 299 10^3/UL Mean Platelet Volume 9.1 fl Immature Granulocytes % 0.400 % Neutrophils % 59.8 % Lymphocytes % 33.4 % Monocytes % 3.5 % Eosinophils % 2.3 % Basophils % 0.6 % Nucleated Red Blood Cells % 0.0 /100WBC Immature Granulocytes # 0.020 10^3/ul Neutrophils # 3.1 10^3/ul Lymphocytes # 1.7 10^3/ul Monocytes # 0.2 10^3/ul Eosinophils # 0.1 10^3/ul Basophils # 0.0 10^3/ul Nucleated Red Blood Cells # 0.0 10^3/ul Urine Color YELLOW Urine Clarity CLEAR Urine pH 5.0 Urine Specific [place] 1.014 Urine Ketones NEGATIVE mg/dL Urine Nitrite NEGATIVE mg/dL Urine Bilirubin NEGATIVE mg/dL Urine Urobilinogen NEGATIVE mg/dL Urine Leukocyte Esterase NEGATIVE Valerie/ul Urine Hemoglobin NEGATIVE mg/dL Urine Glucose NEGATIVE mg/dL Urine Total Protein NEGATIVE mg/dl Sodium Level 143 mmol/L Potassium Level 4.9 mmol/L Chloride Level 106 mmol/L Carbon Dioxide Level 28 mmol/L Anion Gap 9 Blood Urea Nitrogen 11 mg/dl Creatinine 0.91 mg/dl Est Glomerular Filtrat Rate mL/min > 60 mL/min Glucose Level 146 mg/dl Calcium Level 9.7 mg/dl Total Bilirubin 0.3 mg/dl Direct Bilirubin 0.00 mg/dl Indirect Bilirubin 0.3 mg/dl Aspartate Amino Transf (AST/SGOT) 33 IU/L Alanine Aminotransferase (ALT/SGPT) 18 IU/L Alkaline Phosphatase 68 IU/L Total Protein 8.0 g/dl Albumin 4.7 g/dl Globulin 3.30 g/dl Albumin/Globulin Ratio 1.42 Lipase 56 U/L Current Medications Medications Dose Sig/Sam Start Time Status Last (Trade) Ordered Route PRN Stop Time Admin Dose Reason Admin Sodium 1,000 ml @ Q1H STAT 10/11/18 DC 10/11/18 Chloride 1,000 mls/hr IV 09:14 10/11/18 09:29 10:13 Ondansetron 4 mg ONCE STAT 10/11/18 DC 10/11/18 HCl (Zofran IV 09:14 10/11/18 09:29 Inj) 09:17 Ketorolac 15 mg ONCE STAT 10/11/18 DC 10/11/18 Tromethamine IV 09:14 10/11/18 09:29 (Toradol) 09:17 Cephalexin 500 mg ONCE ONCE 10/11/18 DC 10/11/18 (Keflex) PO 10:00 10/11/18 10:20 10:01 Procedures/MDM IV line was established patient was placed on actuarial consultant rhythm strip revealed a sinus rhythm at about 80 bpm with upright P and T waves. Patient was afebrile I administered 1 L normal saline IV, Toradol 15 mg IV, Zofran 4 mg IV. CBC and electrolytes were normal, liver function tests were normal, urinalysis was negative for infection. CT scan of the abdomen and pelvis was performed,IMPRESSION: 1. 2 mm non-obstructing inferior left renal calcified calculus. No other calcified urinary calculi. No obstructive uropathy bilaterally. 2. No evidence of gastrointestinal disease. Given the patient's symptoms and CT scan findings I administered cephalexin 500 mg p.o. x1. Differential diagnoses considered, included but not limited to acute coronary syndrome, pulmonary embolism, aortic dissection, abdominal aortic aneurysm, sepsis, stroke, meningitis, encephalitis, pneumonia, appendicitis, cholecysti tis, bowel obstruction, pyelonephritis, nephrolithiasis, cystitis, as well as metabolic, hematologic, and electrolyte abnormalities. As well as abscess, cellulitis, fractures, and dislocations. Patient feels much better at this time, and vital signs are normal, symptoms have improved. I did give strict instructions to return to the ED if symptoms continue or worsen, patient will otherwise follow-up with primary care physician. Patient understood instructions and agreed to plan. Disclaimer: Inadvertent spelling and grammatical errors are likely due to EHR/dictation software use and do not reflect on the overall quality of patient care. Also, please note that the electronic time recorded on this note does not necessarily reflect the actual time of the patient encounter. Departure Diagnosis: Primary Impression: Flank pain Additional Impression: Nephrolithiasis Condition: Good Patient Instructions: Kidney Stone W/ Colic ZOHRABIAN,TEMITOPE MD Oct 12, 2018 11:56
== END 2018-10-11 11:02 | disposition home or self-care (01) ==
LOC: E/R 06:01
DX: N20.0 Calculus of kidney (principal)
CPT/HCPCS: 74176; 80053; 81003; 83690; 85025; 87086; J1885; J2405; J7030; Z7610; 36415; 96361; 96374; 96375